=== PATIENT | female | born 1935 | race Caucasian/White ===

== ENCOUNTER 2022-07-08 11:50 | Observation (INO) ==
[2022-07-08 12:49] LABS: Basophils # 0.1 10*3/uL (0.0-0.2); Basophils % 0.8 % (0.0-0.8); Eosinophils # 0.1 10*3/uL (0.0-0.87); Eosinophils % 1.4 % (0.00-10.9); Hematocrit 35.6 VOL% (35.7-47.0); Hemoglobin 10.7 GM/DL (12.0-16.0); Immature Granulocytes % 0.3 %; Immature Granulocytes Absolute 0.02 #; Lymphocytes # 2.3 10*3/uL (1.4-4.0); Lymphocytes % 36.5 % (21.3-54.2); Mean Corpuscular HGB Conc 30.1 GM/DL (32-36); Mean Corpuscular Volume 88.6 FL (87-102); Mean Platelet Volume 9.4 FL (9.6-12.0); Monocytes # 0.4 10*3/uL (0.11-0.8); Monocytes % 6.8 % (1.7-12.7); Neutrophils % 54.2 % (38.7-73.9); Platelet Count 329 T/CUMM (130-400); Red Blood Count 4.02 MC/CUMM (3.8-5.5); Red Cell Distribution Width 15.2 % (9.3-17.3); White Blood Count 6.3 T/CUMM (4-12)
[2022-07-08 12:57] LABS: PT Patient Result 10.9 SECS (10.1-12.1); Partial Thromboplastin Time 33.3 SECS (23.7-32.9)
[2022-07-08 13:04] LABS: Albumin 4.1 G/DL (3.4-5.0); Bilirubin,Total 0.9 MG/DL (0.20-1.00); Calcium 10.2 MG/DL (8.5-10.1); Potassium 4.5 MMOL/L (3.5-5.1); Total Protein 7.7 G/DL (6.4-8.2)
[2022-07-08 13:59] LABS: Thyroid Stimulating Hormone 2.94 uIU/ml (0.358-3.74)
[2022-07-08 14:41] LABS: Bacteria,Urine Occasional /HPF (Few); Bilirubin,Urine Negative (Negative); Blood, Urine Negative (Negative); Glucose,Urine (UA) Negative (Negative); Ketones,Urine Negative (Negative); Mucus,Urine Occasional /LPF (Occasional); Nitrite,Urine Negative (Negative); Protein,Urine Negative (Negative); RBC,Urine <1 /HPF (0-4); Squamous Epithelial Cell,Urine Occasional /HPF (0-10); Urine Appearance CLEAR (Clear); Urine Color Straw (Yellow); Urine Specific Gravity 1.004 (1.001-1.035); Urine Urobilinogen < 2.0 eU/dL (<2.0)
[2022-07-08] MEDS ORDERED: ONDANSETRON 4 MG/2 ML VIAL IV PRN (15:25)
[2022-07-08] MEDS ORDERED: MORPHINE 2 MG/1 ML SYRINGE IV PRN (15:25)
[2022-07-08] MEDS ORDERED: NITROGLYCERIN SL 0.4 MG TABLET SL STA (15:25)
[2022-07-08] MEDS ORDERED: ACETAMINOPHEN 325 MG TABLET PO PRN (15:25)
[2022-07-08] MEDS ORDERED: NITROGLYCERIN SL 0.4 MG TABLET SL PRN (18:58)
[2022-07-08] MEDS: APIXABAN 5 MG TABLET PO SCH (20:48)
[2022-07-08] MEDS: DOCUSATE SODIUM 100 MG CAPSULE PO SCH (20:48)
[2022-07-08] MEDS: carvediloL 3.125 MG TABLET PO SCH (20:48)
[2022-07-09 04:59] LABS: Basophils % 0.7 % (0.0-0.8); Eosinophils # 0.1 10*3/uL (0.0-0.87); Eosinophils % 1.4 % (0.00-10.9); Hematocrit 32.6 VOL% (35.7-47.0); Hemoglobin 9.7 GM/DL (12.0-16.0); Immature Granulocytes % 0.4 %; Immature Granulocytes Absolute 0.02 #; Lymphocytes # 2.1 10*3/uL (1.4-4.0); Lymphocytes % 36.8 % (21.3-54.2); Mean Corpuscular HGB Conc 29.8 GM/DL (32-36); Mean Corpuscular Volume 88.8 FL (87-102); Mean Platelet Volume 9.4 FL (9.6-12.0); Monocytes # 0.5 10*3/uL (0.11-0.8); Monocytes % 8.3 % (1.7-12.7); Neutrophils % 52.4 % (38.7-73.9); Platelet Count 278 T/CUMM (130-400); Red Blood Count 3.67 MC/CUMM (3.8-5.5); Red Cell Distribution Width 15.5 % (9.3-17.3); White Blood Count 5.7 T/CUMM (4-12)
[2022-07-09] MEDS: LEVOTHYROXINE 50 MCG TABLET PO SCH (05:19)
[2022-07-09 05:58] LABS: Albumin 3.3 G/DL (3.4-5.0); Bilirubin,Total 0.8 MG/DL (0.20-1.00); Calcium 9.7 MG/DL (8.5-10.1); Osmolality,Calculated 288.7 MOS/KG (273-304); Potassium 4.2 MMOL/L (3.5-5.1); Total Protein 6.6 G/DL (6.4-8.2)
[2022-07-09] MEDS: VALSARTAN 80 MG TABLET PO SCH (09:50)
[2022-07-09] MEDS: DOCUSATE SODIUM 100 MG CAPSULE PO SCH ×2 (09:51→21:42)
[2022-07-09] MEDS: ATORVASTATIN 20 MG TABLET PO SCH (09:51)
[2022-07-09] MEDS: carvediloL 3.125 MG TABLET PO SCH ×2 (09:51→21:43)
[2022-07-09] MEDS: PANTOPRAZOLE 40 MG TABLET PO SCH (09:51)
[2022-07-09] MEDS: APIXABAN 5 MG TABLET PO SCH ×2 (09:51→21:42)
[2022-07-09] MEDS: amLODIPine 5 MG TABLET PO SCH (09:51)
[2022-07-09] MEDS: FUROSEMIDE 40 MG TABLET PO SCH (09:57)
[2022-07-10 04:52] LABS: Basophils % 0.5 % (0.0-0.8); Eosinophils # 0.1 10*3/uL (0.0-0.87); Eosinophils % 1.2 % (0.00-10.9); Immature Granulocytes % 0.3 %; Immature Granulocytes Absolute 0.02 #; Lymphocytes # 2.5 10*3/uL (1.4-4.0); Lymphocytes % 38.3 % (21.3-54.2); Mean Corpuscular HGB Conc 30.3 GM/DL (32-36); Mean Corpuscular Volume 89.4 FL (87-102); Monocytes # 0.5 10*3/uL (0.11-0.8); Monocytes % 7.5 % (1.7-12.7); Neutrophils % 52.2 % (38.7-73.9); Platelet Count 270 T/CUMM (130-400); Red Blood Count 3.69 MC/CUMM (3.8-5.5); Red Cell Distribution Width 15.5 % (9.3-17.3); White Blood Count 6.5 T/CUMM (4-12)
[2022-07-10 05:18] LABS: Potassium 3.8 MMOL/L (3.5-5.1)
[2022-07-10] MEDS: LEVOTHYROXINE 50 MCG TABLET PO SCH (05:47)
[2022-07-10 06:59] LABS: Risk Ratio 3.32; VLDL Cholesterol 16.2 MG/DL
[2022-07-10] MEDS: FUROSEMIDE 40 MG TABLET PO SCH (09:42)
[2022-07-10] MEDS: PANTOPRAZOLE 40 MG TABLET PO SCH (09:42)
[2022-07-10] MEDS: amLODIPine 5 MG TABLET PO SCH (09:42)
[2022-07-10] MEDS: carvediloL 3.125 MG TABLET PO SCH (09:43)
[2022-07-10] MEDS: DOCUSATE SODIUM 100 MG CAPSULE PO SCH (09:43)
[2022-07-10] MEDS: APIXABAN 5 MG TABLET PO SCH (09:43)
[2022-07-10] MEDS: VALSARTAN 80 MG TABLET PO SCH (09:43)
[2022-07-10] MEDS: ATORVASTATIN 20 MG TABLET PO SCH (09:43)
[2022-07-10 16:05] VITALS: BP 106/63
== END 2022-07-10 17:34 | disposition home health service (06) ==
LOC: N.TELEN 11:50 → N.ED 11:50 → N.TELEN 16:18
PROVIDERS: ADMIT Family Medicine; ATTEND Family Medicine